=== PATIENT | female | born 1990 | race Caucasian/White ===

== ENCOUNTER 2023-03-06 18:00 | Inpatient (IN) | payer BC ==
[2023-03-06] MEDS ORDERED: Promethazine HCl 25 MG/ML VIAL IM PRN (23:37)
[2023-03-06] MEDS ORDERED: Ondansetron PF 4 MG/2 ML Vial IVP PRN (23:37)
[2023-03-06] MEDS ORDERED: fentaNYL 50 mcg/mL 1 mL Vial SLOW IVP PRN (23:37)
[2023-03-06] MEDS ORDERED: Ibuprofen 800 MG TAB PO PRN (23:37)
[2023-03-06] MEDS ORDERED: Lidocaine 1% (PF) 30 ML VIAL SC PRN (23:37)
[2023-03-06] MEDS ORDERED: hydrALAZINE 20 MG/ML VIAL SLOW IVP PRN (23:37)
[2023-03-06] MEDS ORDERED: Misoprostol 200 MCG TAB PR PRN (23:37)
[2023-03-06] MEDS ORDERED: Terbutaline Sulfate 1 MG/ML VIAL SC SCH (23:45)
[2023-03-06] MEDS ORDERED: Lactated Ringer's 1,000 ML IV SCH (23:45)
[2023-03-06] MEDS ORDERED: Penicillin G Potassium 5 MILL.UNITS in Sodium Chloride 0.9% 100 ML IVPB SCH (23:45)
[2023-03-06] MEDS ORDERED: NS w/ Oxytocin 30 units 500 ML IV SCH ×2 (23:45)
[2023-03-07 06:49] VITALS: BMI 34.0
[2023-03-07] MEDS ORDERED: Penicillin G Potassium 5 MILL.UNITS VIAL ONE (07:00)
[2023-03-07 07:12] LABS: Hemoglobin 11.4 g/dL (12.0-15.5); Mean Corpuscular HGB CONC 33.4 g/dL (32.0-36.0); Mean Corpuscular Hemoglobin 26.8 pg (27.0-33.0); Mean Corpuscular Volume 80.2 fl (81.6-98.3); Mean Platelet Volume 11.4 fl (7.4-10.4); Platelet Count 273 10x3/uL (150-450); RBC Distribution Width 13.9 % (11.5-14.5); Red Blood Cell (RBC) Count 4.25 10x6/uL (3.90-5.03); White Blood Cell (WBC) Count 8.3 10x3/uL (3.5-10.5)
[2023-03-07 07:32] LABS: ALT (SGPT) 22 U/L (8-55); AST (SGOT) 37 U/L (5-34); Albumin 3.4 g/dL (3.5-5.0); Alkaline Phosphatase 190 U/L (40-110); Anion Gap 17 mmol/L (10-20); BUN (Urea Nitrogen) 5 mg/dL (7.0-18.7); Bilirubin, Total 0.8 mg/dL (0.2-1.2); Calc. Creatinine Clearance 164 mL/min (70-130); Calcium 8.7 mg/dL (7.8-10.44); Carbon Dioxide 18 mmol/L (22-29); Chloride 106 mmol/L (98-107); Estimated GFR 118; Globulin 2.6 g/dL (2.4-3.5); Glucose 75 mg/dL (70-105); Potassium 3.9 mmol/L (3.5-5.1); Sodium 137 mmol/L (136-145)
[2023-03-07] MEDS ORDERED: fentaNYL/Ropivacaine Epidural 100 ML ONE (07:33)
[2023-03-07] MEDS ORDERED: Bupivacaine 0.25% HCL 30 ML VIAL ONE (08:00)
[2023-03-07] MEDS ORDERED: ePHEDrine Sulfate 50 MG/10 ML VIAL ONE (08:00)
[2023-03-07 08:03] LABS: HBSAg Index 0.16 S/CO (0-0.99); Hep B Surf Ag - L&D Non-Reactive S/CO (NonReactive)
[2023-03-07 08:04] LABS: Syphilis Antibody Nonreactive (Nonreactive); Syphilis Antibody Index 0.06 S/CO (<1.00 Non-Reactive)
[2023-03-07] MEDS ORDERED: Ondansetron PF 4 MG/2 ML Vial IVP PRN (08:09)
[2023-03-07] MEDS ORDERED: Acetaminophen 325 MG TAB PO PRN (08:09)
[2023-03-07] MEDS ORDERED: Moisturizing Cream (Eucerin) 113 GM JAR TOP PRN (08:09)
[2023-03-07] MEDS ORDERED: diphenhydrAMINE 50 MG/ML VIAL IVP PRN (08:09)
[2023-03-07] MEDS ORDERED: Lactated Ringer's 500 ML IV PRN (08:09)
[2023-03-07] MEDS ORDERED: Promethazine HCl 25 MG/ML VIAL IM PRN (08:09)
[2023-03-07] MEDS ORDERED: ePHEDrine Sulfate 50 MG/10 ML VIAL SLOW IVP PRN (08:09)
[2023-03-07] MEDS ORDERED: Naloxone HCl 0.4 mg/ml Vial IVP PRN ×2 (08:09)
[2023-03-07] MEDS ORDERED: fentaNYL 2 mcg/Ropivacaine 0.2% Epidural 100 ML CADD EPIDURAL SCH (08:15)
[2023-03-07] MEDS ORDERED: Communication Order-Pharmacy FS SCH (08:15)
[2023-03-07] MEDS ORDERED: Mineral Oil ENEMA ONE (08:23)
[2023-03-07] MEDS ORDERED: fentaNYL 50 mcg/mL 1 mL Vial ONE (08:43)
[2023-03-07] MEDS: Penicillin G 2.5 MILL.units 2.5 MILL.UNITS in Premix Bag 1 BAG IVPB SCH ×2 (11:16→16:16)
[2023-03-07] MEDS ORDERED: Benzocaine-Menthol 82.5 ML CAN TOP PRN (23:08)
[2023-03-07] MEDS ORDERED: Boostrix 0.5 ML (Tdap) VIAL (>/=7 yrs of age) IM ONE (23:08)
[2023-03-07] MEDS ORDERED: Lanolin Ointment 7 GM TUBE TOP PRN (23:08)
[2023-03-07] MEDS ORDERED: hydrALAZINE 20 MG/ML VIAL SLOW IVP PRN (23:08)
[2023-03-07] MEDS ORDERED: Bisacodyl 10 MG SUPP PR PRN (23:08)
[2023-03-07] MEDS ORDERED: Milk Of Magnesia 30 ML UDCUP PO PRN (23:08)
[2023-03-07] MEDS: Ibuprofen 800 MG TAB PO SCH (23:24)
[2023-03-07] MEDS ORDERED: NS w/ Oxytocin 30 units 500 ML IV SCH (23:30)
[2023-03-08] MEDS: Ibuprofen 800 MG TAB PO SCH ×3 (08:19→22:33)
[2023-03-08] MEDS: Ferrous Sulfate 325 MG TAB PO SCH ×2 (08:56→18:09)
[2023-03-08] MEDS: Penicillin G 2.5 MILL.units 2.5 MILL.UNITS in Premix Bag 1 BAG IVPB SCH ×2 (08:56→08:57)
[2023-03-08] MEDS ORDERED: Prenatal Vitamin 1 TAB PO SCH (09:00)
[2023-03-08] MEDS: Docusate 100 MG CAP PO SCH ×2 (09:02→20:39)
[2023-03-08 23:14] VITALS: BP 120/80; TEMP 97.7
== END 2023-03-08 23:20 | disposition home or self-care (01) | DRG 806 ==
LOC: CSHLD 03-07 06:16 → CSHPP 03-08 08:25
PROVIDERS: ADMIT Obstetrics & Gynecology; ATTEND Advanced Practice Midwife
PROC: 10E0XZZ Delivery of Products of Conception, External Approach (ICD-10-PCS; principal; 2023-03-07)
PROC: 3E033VJ Introduction of Other Hormone into Peripheral Vein, Percutaneous Approach (ICD-10-PCS; 2023-03-07)
PROC: 3E03329 Introduction of Other Anti-infective into Peripheral Vein, Percutaneous Approach (ICD-10-PCS; 2023-03-07)
DX: O10.92 Unspecified pre-existing hypertension complicating childbirth (principal); O98.82 Other maternal infectious and parasitic diseases complicating childbirth; Z37.0 Single live birth; B95.1 Streptococcus, group B, as the cause of diseases classified elsewhere; O32.1XX0 Maternal care for breech presentation, not applicable or unspecified; Z3A.37 37 weeks gestation of pregnancy
CPT/HCPCS: 36415; 51702; 59412; 80053; 85027; 86780; 86850; 86900; 86901; 87340; J2405; J2540; J2590; J3010; S0020

== ENCOUNTER 2024-07-16 05:09 | Emergency (ER) | payer BC ==
[2024-07-16] MEDS ORDERED: Mag-Al 1200 mg/1200 mg/30 ML UDCUP ONE (05:21)
[2024-07-16] MEDS ORDERED: Lidocaine Viscous Sol 2% 15 ml UD Cup ONE (05:21)
[2024-07-16 05:32] LABS: #Basophils 0.07 10x3/uL (0.0-0.2); #Eosinophils 0.22 10x3/uL (0.0-0.5); #Monocytes 0.58 10x3/uL (0.0-1.1); #Neutrophils 4.45 10x3/uL (1.5-8.4); %Basophils 0.9 % (0.0-2.0); %Eosinophils 2.9 % (0.0-6.0); %Lymphocytes 28.9 % (18.0-47.0); %Monocytes 7.7 % (0.0-10.0); %Neutrophils 59.3 % (40.0-75.0); Hematocrit 39.2 % (34.9-44.5); Hemoglobin 13.2 g/dL (12.0-15.5); Mean Corpuscular HGB CONC 33.7 g/dL (32.0-36.0); Mean Corpuscular Hemoglobin 28.3 pg (27.0-33.0); Mean Corpuscular Volume 84.1 fL (81.6-98.3); Mean Platelet Volume 10.2 fL (7.4-10.4); Platelet Count 329 10x3/uL (150-450); RBC Distribution Width 13.7 % (11.5-14.5); Red Blood Cell (RBC) Count 4.66 10x6/uL (3.90-5.03); White Blood Cell (WBC) Count 7.5 10x3/uL (3.5-10.5)
[2024-07-16 05:46] LABS: ALT (SGPT) 21 U/L (8-55); AST (SGOT) 25 U/L (5-34); Albumin 4.3 g/dL (3.5-5.0); Alkaline Phosphatase 65 U/L (40-110); Anion Gap 14 mmol/L (10-20); BUN (Urea Nitrogen) 14 mg/dL (7.0-18.7); Bilirubin, Total 0.6 mg/dL (0.2-1.2); Calc. Creatinine Clearance 0 mL/min (70-130); Carbon Dioxide 28 mmol/L (22-29); Chloride 102 mmol/L (98-107); Estimated GFR 96; Globulin 2.9 g/dL (2.4-3.5); Glucose 104 mg/dL (70-105); Lipase 50 U/L (8-78); Potassium 4.4 mmol/L (3.5-5.1); Protein, Total 7.2 g/dL (6.0-8.3); Sodium 140 mmol/L (136-145); Troponin I Less than 0.010 ng/mL (< 0.028)
== END 2024-07-16 06:35 | disposition home or self-care (01) ==
LOC: CSHERS 05:09
DX: R10.13 Epigastric pain (principal)
CPT/HCPCS: 71045; 80053; 83690; 84484; 85025; 93005